=== PATIENT | female | born 1970 | race Two or more races ===

== ENCOUNTER 2019-10-22 07:43 | Emergency (ER) | payer OTHER ==
[~2019-10-22] VITALS: Ht 160 cm; Wt 79.4 kg
[~2019-10-22 07:43] MED LIST: ORPH100T
[2019-10-22] MEDS ORDERED: PEPCID AC20 MG (08:01)
[2019-10-23] MEDS ORDERED: KETO10TA2 PO (07:55)
[2019-10-23] MEDS ORDERED: CRESTOR5 MG PO (07:55)
== END 2019-10-22 12:19 | disposition home or self-care (01) ==
LOC: ER 07:43
DX: I10 Essential (primary) hypertension (principal)

== ENCOUNTER 2019-10-23 01:12 | Emergency (ER) | payer OTHER ==
[~2019-10-23] VITALS: Ht 160 cm; Wt 79.4 kg
[~2019-10-23 01:12] MED LIST changes: +PEPCID AC20 MG
[2019-10-23] MEDS ORDERED: CRESTOR5 MG PO (07:55)
[2019-10-23] MEDS ORDERED: KETO10TA2 PO (07:55)
== END 2019-10-23 08:06 | disposition home or self-care (01) ==
LOC: ER 01:12
DX: R07.89 Other chest pain (principal)

== ENCOUNTER 2025-08-25 14:00 | Day surgery (SDC) | payer OTHER ==
[2025-08-18 09:50] VITALS: BP 109/75
[2025-08-18 10:27] LABS: BASO % 0.7 % (0.1-1.2); EOS # 0.46 (0.04-0.54); EOS % 5.5 % (0.7-7.0); LYMPH # 2.06 (1.18-3.74); LYMPH % 24.8 % (19.3-53.1); MEAN PLATELET VOLUME 10.60 fl (9.4-12.4); MONO # 0.49 (0.24-0.82); MONO % 5.9 % (4.7-12.5); NEUT # 5.23 (1.56-6.13); NEUT % 62.9 % (34.0-71.1); RED CELL DISTRIBUTION WIDTH 12.3 % (11.6-14.4)
[2025-08-18 10:44] LABS: URINE APPEARANCE Clear; URINE BILIRRUBIN Negative (NEGATIVE); URINE BLOOD Negative; URINE COLOR Yellow; URINE GLUCOSE Negative (NEGATIVE); URINE KETONE Negative (NEGATIVE); URINE LEUKOCYTE Negative; URINE NITRATE Negative; URINE PROTEIN Negative (NEGATIVE); URINE UROBILINOGEN 0.2 E.U./dl
[2025-08-18 10:48] LABS: URINE BACTERIA 481.1 uL (0.0-1933); URINE EPITHELIAL CELLS 5.0 uL (0.0-38.8); URINE RBC 9.8 uL (0.0-20.8); URINE WBC 4.6 uL (0.0-23.2)
[2025-08-18 10:52] LABS: INR 0.98
[2025-08-18 10:55] LABS: URINE CAST 0.14 uL (0.0-1.40)
[2025-08-18 11:14] LABS: ALT/SGPT 21.0 U/L (12-78); AST/SGOT 11.0 U/L (15-37); BILIRUBIN TOTAL 0.93 mg/dL (0.3-1.2); BUN CREA RATIO 22.0 (7.0-25.0); CREATININE SERUM 0.63 mg/dL (0.55-1.02); GFR 98.85; GLOBULINA 3.2 G/DL (2.4-3.5); GLUCOSE FASTING 100.0 mg/dL (65-100); OSMOLALITY SERUM 287.0 MOSM/KG (275-295)
[~2025-08-25 14:00] MED LIST changes: +CLIMARA1 EAC5 TD; +CRESTOR40 MG PO; +CRESTOR5 MG PO; +KETO10TA2 PO
[2025-08-25] MEDS ORDERED: HEPARIN SODIUM,PORCINE 5,000 UNITS/ML VIAL ONE (15:18)
[2025-08-25] MEDS ORDERED: CEFAZOLIN SODIUM 1,000 MG VIAL ONE (15:19)
[2025-08-25] MEDS ORDERED: POVIDONE-IODINE 118 ML BOTT TOP ONE (16:28)
[2025-08-25] MEDS ORDERED: SURGIFLO APPLICATOR 1 EACH APPL TOP ONE (17:38)
[2025-08-25] MEDS ORDERED: HEMOSTATIC MATRIX 1 KIT KIT TOP ONE (17:38)
[2025-08-25] MEDS ORDERED: SUGAMMADEX SODIUM 200 MG/2 ML VIAL IV ONE (18:28)
[2025-08-25] MEDS ORDERED: CHLORHEXIDINE GLUCONATE 120 ML BOTTLE TOP ONE (19:38)
[2025-08-25] MEDS ORDERED: RINGERS SOLUTION,LACTATED 1,000 ML IV SCH (19:45)
[2025-08-25] MEDS ORDERED: KETOROLAC TROMETHAMINE 30 MG VIAL IV ONE (19:45)
== END 2025-08-25 21:50 | disposition home or self-care (01) ==
LOC: CIR.AMB 14:00
PROVIDERS: ATTEND Student in an Organized Health Care Education/Training Program
DX: N70.11 Chronic salpingitis (principal); R10.22 Pelvic and perineal pain left side; N84.0 Polyp of corpus uteri